=== PATIENT | male | born 1990 | race Caucasian/White ===

== ENCOUNTER 2021-01-15 10:04 | Emergency (ER) | payer BC ==
[~2021-01-15] VITALS: Ht 175.3 cm; Wt 86.2 kg
[2021-01-15 11:30] VITALS: BP 143/93
== END 2021-01-15 11:32 | disposition home or self-care (01) ==
LOC: M.ERS 10:04
DX: S01.01XA Laceration without foreign body of scalp, initial encounter (principal); W22.8XXA Striking against or struck by other objects, initial encounter; Y93.89 Activity, other specified; Y92.89 Other specified places as the place of occurrence of the external cause; Y99.8 Other external cause status